=== PATIENT | female | born 1990 | race African-American/Black ===

== ENCOUNTER 2020-10-28 03:59 | Emergency (ER) | payer MEDICAID ==
[~2020-10-28] VITALS: Ht 162.6 cm; Wt 95.0 kg
[2020-10-28 04:18] VITALS: BP 131/80
[2020-10-28] MEDS ORDERED: PREDNISONE 20MG TABLET PO ONE (05:00)
[2020-10-28] MEDS ORDERED: IPRATROPIUM BROMIDE (0.02%) 0.5MG/2.5ML NEB HHN ONE (05:00)
[2020-10-28] MEDS ORDERED: ALBUTEROL (0.083%) 2.5MG/3ML NEB HHN ONE (05:00)
== END 2020-10-28 06:30 | disposition left against medical advice (07) ==
LOC: ER 03:59
DX: J45.901 Unspecified asthma with (acute) exacerbation (principal); R03.0 Elevated blood-pressure reading, without diagnosis of hypertension
CPT/HCPCS: 94644; 99285; J7512; Z7610

== ENCOUNTER 2021-10-21 18:20 | Emergency (ER) | payer MEDICAID ==
[~2021-10-21] VITALS: Ht 162.6 cm; Wt 109.0 kg
[2021-10-21] MEDS ORDERED: ACETAMINOPHEN 325MG TABLET PO ONE (20:00)
[2021-10-21 22:12] VITALS: BP 122/84
== END 2021-10-21 22:13 | disposition home or self-care (01) ==
LOC: ER 18:20
DX: O26.892 Other specified pregnancy related conditions, second trimester (principal); Z3A.25 25 weeks gestation of pregnancy; J45.909 Unspecified asthma, uncomplicated; Z90.49 Acquired absence of other specified parts of digestive tract; Z98.890 Other specified postprocedural states
CPT/HCPCS: 76805; 81025; 99284

== ENCOUNTER 2023-10-30 19:52 | Emergency (ER) | payer MEDICAID ==
[~2023-10-30] VITALS: Ht 165.1 cm; Wt 82.0 kg
[2023-10-30 19:54] VITALS: BP 144/86; PULSE 100; RESP 14; TEMP 98.6; O2SAT 96
[2023-10-30] MEDS ORDERED: IPRATROPIUM BROMIDE (0.02%) 0.5MG/2.5ML NEB HHN STA (20:11)
[2023-10-30] MEDS ORDERED: PREDNISONE 20MG TABLET PO STA (20:11)
[2023-10-30] MEDS ORDERED: ALBUTEROL (0.083%) 2.5MG/3ML NEB HHN SCH (20:30)
[2023-10-30] MEDS ORDERED: P50 MT ×2 (21:26)
[2023-10-30] MEDS ORDERED: ALBU6.7H15 INH ×2 (21:26)
== END 2023-10-30 21:27 | disposition home or self-care (01) ==
LOC: ER 19:52
DX: R05.9 Cough, unspecified (principal); J45.909 Unspecified asthma, uncomplicated; Z98.890 Other specified postprocedural states; Z90.49 Acquired absence of other specified parts of digestive tract
CPT/HCPCS: 71045; 99283